=== PATIENT | male | born 1990 | race American Indian/Alaskan Native ===

== ENCOUNTER 2017-05-07 14:22 | Emergency (ER) | payer BC ==
[2017-05-07] MEDS ORDERED: DUONEB *Not for PRN Use IH ONE ×4 (17:28→21:49)
[2017-05-07] MEDS ORDERED: DELTASONE PO ONE (19:50)
--- NOTE | 2017-05-07 20:07 | Emergency Department Report ---
ED Asthma HPI - General Chief Complaint: Adult Asthma Stated Complaint: ASTHMA Time Seen by Provider: 05/07/17 19:49 Source: patient Mode of arrival: Ambulatory Limitations: No Limitations - History of Present Illness Initial Comments: 26-year-old male past medical history asthma presents with complaint of wheezing since this afternoon. pt is a smoker. Speaking in full sentences no audible wheezing or stridor on clinical exam. Denies productive cough fever or chills nausea vomiting or chest pain. States he ran out of his albuterol inhaler. Denies history of intubations for asthma. Patient does not know baseline peak flow MD Complaint: "asthma attack", shortness of breath, wheezing -: This afternoon Asthma History: childhood onset Severity: moderate Context: ran out of meds Treatments Prior to Arrival: inhaled bronchodilator - Related Data Current Asthma Therapy: none Previous Rx's Medication Instructions Recorded Last Taken Type ALBUTEROL NEB's [Proventil 0.083% 2.5 mg IH Q4H PRN #1 box 05/07/17 Unknown Rx NEBS] Albuterol Sulfate [Ventolin Hfa] 1 puff IH Q4H PRN #1 hfa.aer.ad 05/07/17 Unknown Rx Phenylephrine/Dm/Acetaminop/GG 10 ml PO Q4H PRN #1 liquid 05/07/17 Unknown Rx [Mucinex Xzrx-Bix-Banlfbbojq Lq] predniSONE [Deltasone] 40 mg PO QDAY #10 tab 05/07/17 Unknown Rx Allergies Allergy/AdvReac Type Severity Reaction Status Date / Time No Known Allergies Allergy Verified 05/07/17 15:25 ED Review of Systems ROS: Stated complaint: ASTHMA Other details as noted in HPI Constitutional: denies: chills, fever Eyes: denies: eye pain, eye discharge, vision change ENT: denies: ear pain, throat pain Respiratory: wheezing. denies: cough, shortness of breath Cardiovascular: denies: chest pain, palpitations Endocrine: no symptoms reported Gastrointestinal: denies: abdominal pain, nausea, diarrhea Genitourinary: denies: urgency, dysuria Musculoskeletal: denies: back pain, joint swelling, arthralgia Skin: denies: rash, lesions Neurological: denies: headache, weakness, paresthesias Psychiatric: denies: anxiety, depression Hematological/Lymphatic: denies: easy bleeding, easy bruising ED Past Medical Hx - Past Medical History Previous Medical History?: Yes Hx Asthma: Yes - Surgical History Past Surgical History?: No - Social History Smoking Status: Current Some Day Smoker Substance Use Type: Alcohol - Medications Home Medications: Home Medications Medication Instructions Recorded Confirmed Last Taken Type ALBUTEROL NEB's [Proventil 0.083% 2.5 mg IH Q4H PRN #1 box 05/07/17 Unknown Rx NEBS] Albuterol Sulfate [Ventolin Hfa] 1 puff IH Q4H PRN #1 hfa.aer.ad 05/07/17 Unknown Rx Phenylephrine/Dm/Acetaminop/GG 10 ml PO Q4H PRN #1 liquid 05/07/17 Unknown Rx [Mucinex Bqsq-Zxh-Dwtwqufidi Lq] predniSONE [Deltasone] 40 mg PO QDAY #10 tab 05/07/17 Unknown Rx ED Physical Exam - General Limitations: No Limitations General appearance: alert, in no apparent distress - Head Head exam: Present: atraumatic, normocephalic - Eye Eye exam: Present: normal appearance, PERRL, EOMI - ENT ENT exam: Present: mucous membranes moist - Neck Neck exam: Present: normal inspection - Respiratory Respiratory exam: Present: wheezes (wheezing bilateral lower lung goncalves). Absent: respiratory distress - Cardiovascular Cardiovascular Exam: Present: regular rate, normal rhythm. Absent: systolic murmur, diastolic murmur, rubs, gallop - GI/Abdominal GI/Abdominal exam: Present: soft, normal bowel sounds - Rectal Rectal exam: Present: deferred - Extremities Exam Extremities exam: Present: normal inspection - Back Exam Back exam: Present: normal inspection - Neurological Exam Neurological exam: Present: alert, oriented X3 - Psychiatric Psychiatric exam: Present: normal affect, normal mood - Skin Skin exam: Present: warm, dry, intact, normal color. Absent: rash ED Course Vital Signs 05/07/17 05/07/17 15:23 22:37 Temperature 98.4 F 99.3 F Pulse Rate 112 H 89 Respiratory 16 18 Rate Blood Pressure 151/85 Blood Pressure 135/76 [Right] O2 Sat by Pulse 94 94 Oximetry ED Medical Decision Making - Medical Decision Making A/P: Asthma exacerbation, reactive airway disease 1- refill on albuterol tabs, albuterol inhaler 2- short course prednisone 3- normal vital signs, patient does not have any audible wheezing or stridor or retractions before discharge.States he feels signficantly beteer. Speaking in full sentences and ambulating without SOB. Wheezing significantly diminished on exam 4- vital signs stable before DC, o2 sat 94-98% on room air. I advised pt to stop smoking 5- patient to follow up with primary care doctor or rn diabetes educator Critical care attestation.: If time is entered above; I have spent that time in minutes in the direct care of this critically ill patient, excluding procedure time. ED Disposition Clinical Impression: Asthma Qualifiers: Asthma severity: mild Asthma persistence: intermittent Asthma complication type : with acute exacerbation Qualified Code(s): J45.21 - Mild intermittent asthma with (acute) exacerbation Reactive airway disease Qualifiers: Asthma severity: mild Asthma persistence: intermittent Asthma complication type : with acute exacerbation Qualified Code(s): J45.21 - Mild intermittent asthma with (acute) exacerbation Disposition: DC-01 TO HOME OR SELFCARE Is pt being admited?: No Does the pt Need Aspirin: No Condition: Stable Instructions: Asthma (ED), Reactive Airways Disease (ED) Prescriptions: ALBUTEROL NEB's [Proventil 0.083% NEBS] 2.5 mg IH Q4H PRN #1 box PRN Reason: Wheezing Albuterol Sulfate [Ventolin Hfa] 1 puff IH Q4H PRN #1 hfa.aer.ad PRN Reason: Wheezing Phenylephrine/Dm/Acetaminop/GG [Mucinex Tknr-Dvm-Ftnqqikkdb Lq] 10 ml PO Q4H PRN #1 liquid PRN Reason: Cough predniSONE [Deltasone] 40 mg PO QDAY #10 tab Referrals: [facility] [Outside] - 3-5 Days [facility] [Outside] - 3-5 Days Forms: Accompanied Note, Work/School Release Form(ED) Time of Disposition: 22:31
[2017-05-07 22:39] VITALS: BP 135/76
== END 2017-05-07 22:45 | disposition home or self-care (01) ==
LOC: ED 14:22
DX: J45.21 Mild intermittent asthma with (acute) exacerbation (principal); F17.200 Nicotine dependence, unspecified, uncomplicated
CPT/HCPCS: 94640; 99283; J7512